=== PATIENT | female | born 2000 ===

== ENCOUNTER 2021-10-26 10:19 | Inpatient (IN) | payer MEDICAID ==
[~2021-10-26] VITALS: Ht 154.9 cm; Wt 68.0 kg
[2021-10-26 11:26] LABS: BASOPHILS % (AUTO) 0.3 % (0.0-2.0); EOSINOPHILS % (AUTO) 0 % (1.0-6.0); HEMATOCRIT 35.8 % (36-46); HEMOGLOBIN 12.1 g/dL (12.0-16.0); LYMPHOCYTES # (AUTO) 1.2 K/uL (1.0-4.8); LYMPHOCYTES % (AUTO) 6.2 % (22.0-44.0); MEAN CORPUSCULAR HEMOGLOBIN 30.2 pg (26.0-34.0); MEAN CORPUSCULAR HGB CONC 33.7 G/dL (31.0-37.0); MEAN CORPUSCULAR VOLUME 89 fL (80-100); MONOCYTES # (AUTO) 1.1 K/uL (0.1-1.0); MONOCYTES % (AUTO) 5.6 % (2.0-9.0); NEUTROPHILS # (AUTO) 16.6 K/uL (1.8-7.7); PLATELET COUNT (AUTO) 342 K/uL (150-450); RED BLOOD CELL COUNT(AUTO) 4.01 MIL/uL (4.00-5.20); RED CELL DISTRIBUTION WIDTH 13.1 % (11.5-14.5)
[2021-10-26 11:28] LABS: NEUTROPHILS % (AUTO) 87.9 % (40.0-70.0)
[2021-10-26 11:44] LABS: ANION GAP 20 mmol/L (8-16); CALCIUM, TOTAL 9.4 mg/dL (8.8-10.5); CARBON DIOXIDE 20 mmol/L (22-29); CHLORIDE 103 mmol/L (98-107); CREATININE 1.14 mg/dL (0.60-1.30); GLOMERULAR FILTR. RATE CALC 59 mL/min (>60); GLUCOSE,RANDOM 66 mg/dL (70-110); POTASSIUM 3.7 mmol/L (3.5-5.1); SODIUM SERUM 143 mmol/L (136-145); UREA NITROGEN, BLOOD 24 mg/dL (7-18)
[2021-10-26 11:45] LABS: PLATELET MORPHOLOGY COMMENT GIANT PLTS PRESENT
[2021-10-26 11:49] LABS: ALANINE AMINOTRANSFERASE 22 U/L (12-78); ALBUMIN 4.5 g/dL (3.4-5.0); ALKALINE PHOSPHATASE 78 U/L (46-116); ASPARTATE AMINOTRANSFERASE 56 U/L (15-37); BILIRUBIN,TOTAL 0.8 mg/dL (0.1-1.0); TOTAL PROTEIN, SERUM 8.6 g/dL (6.4-8.2)
[2021-10-26 11:52] LABS: ACETAMINOPHEN < 2 mcg/mL (10-30)
[2021-10-26 12:38] LABS: COVID AG,FIA SOURCE NASAL SWAB
[2021-10-26] MEDS ORDERED: ZOLPIDEM TARTRATE 10 MG TABLET PO PRN (13:30)
[2021-10-26] MEDS ORDERED: OLANZapine 5 MG RAPDIS TABLET PO PRN (13:30)
[2021-10-26 13:56] LABS: GLUCOMETER DEV NAME(LOC) ERT.5; GLUCOSE,POINT OF CARE 63 MG/DL (70-110)
[2021-10-26 14:16] LABS: GLUCOMETER DEV NAME(LOC) ERT.5; GLUCOSE,POINT OF CARE 132 MG/DL (70-110)
[2021-10-26 14:58] VITALS: BP 140/77
[2021-10-26 17:20] VITALS: BP 119/76
[2021-10-26] MEDS ORDERED: MAGNESIUM HYDROXIDE SUSPENSION 30 ML UDCUP PO PRN (21:30)
[2021-10-26] MEDS ORDERED: GuaiFENesin/D-METHORPHAN [SUGAR-FREE] 200-20MG/10 ML SYRUP UDCUP PO PRN (21:30)
[2021-10-26] MEDS ORDERED: PALIPERIDONE PALMITATE 234 MG/1.5 ML SYRINGE IM ONE (21:30)
[2021-10-26] MEDS ORDERED: TUBERCULIN, PURIFIED PROTEIN DERIVATIVE 5 TU/0.1 ML SYRINGE ID ONE (21:30)
[2021-10-26] MEDS ORDERED: PROMETHAZINE HCL 25 MG TABLET PO PRN (21:30)
[2021-10-26] MEDS ORDERED: MAG HYDROX/AL HYDROX/SIMETH ES 30 ML SUSPENSION UDCUP PO PRN (21:30)
[2021-10-26] MEDS ORDERED: LOPERAMIDE HCL 2 MG CAPSULE PO PRN (21:30)
[2021-10-27] MEDS: LORazepam 2 MG TABLET PO PRN ×4 (04:44→21:55)
[2021-10-27 07:04] LABS: HEMOGLOBIN A1C 5.6 % (3.8-5.6)
[2021-10-27 07:39] LABS: CHOL/HDL RATIO 2.6 (3.9-5.7); FREE T4 (FREE THYROXINE) 1.48 ng/dL (0.76-1.46); THYROID STIMULATING HORMONE 0.41 uIU/mL (0.36-3.74)
[2021-10-27] MEDS: OMEGA-3/DHA/EPA/FISH OIL 1,000 MG CAPSULE PO SCH (08:36)
[2021-10-27] MEDS: OLANZapine 5 MG RAPDIS TABLET PO SCH ×3 (08:36→16:57)
[2021-10-27] MEDS: NALTREXONE HCL 50 MG TABLET PO SCH (08:36)
[2021-10-27] MEDS: THIAMINE 100 MG TABLET PO SCH ×2 (08:36→16:57)
[2021-10-27] MEDS: MULTIVITAMINS WITH MINERALS, THERAPEUTIC TABLET PO SCH (08:36)
[2021-10-27] MEDS: FOLIC ACID 1 MG TABLET PO SCH (08:36)
[2021-10-27] MEDS: LamoTRIgine 100 MG TABLET PO SCH (15:00)
[2021-10-27] MEDS: ACETAMINOPHEN 325 MG TABLET PO PRN ×2 (15:09→21:55)
[2021-10-27 16:25] VITALS: BP 109/55
[2021-10-27] MEDS ORDERED: QUEtiapine FUMARATE 100 MG TABLET PO PRN (20:30)
[2021-10-27] MEDS: MELATONIN 5 MG TABLET PO SCH (21:00)
[2021-10-27] MEDS: QUEtiapine FUMARATE 100 MG TABLET PO SCH (21:01)
[2021-10-27] MEDS: HydrOXYzine PAMOATE 50 MG CAPSULE PO PRN (21:02)
[2021-10-28 07:18] LABS: BASOPHILS % (AUTO) 0.6 % (0.0-2.0); EOSINOPHILS % (AUTO) 0.5 % (1.0-6.0); HEMATOCRIT 37.9 % (36-46); HEMOGLOBIN 12.9 g/dL (12.0-16.0); LYMPHOCYTES # (AUTO) 1.8 K/uL (1.0-4.8); LYMPHOCYTES % (AUTO) 18.4 % (22.0-44.0); MEAN CORPUSCULAR HEMOGLOBIN 30.3 pg (26.0-34.0); MEAN CORPUSCULAR HGB CONC 33.9 G/dL (31.0-37.0); MEAN CORPUSCULAR VOLUME 89 fL (80-100); MONOCYTES # (AUTO) 0.6 K/uL (0.1-1.0); MONOCYTES % (AUTO) 6.2 % (2.0-9.0); NEUTROPHILS # (AUTO) 7.1 K/uL (1.8-7.7); NEUTROPHILS % (AUTO) 74.3 % (40.0-70.0); PLATELET COUNT (AUTO) 260 K/uL (150-450); RED BLOOD CELL COUNT(AUTO) 4.25 MIL/uL (4.00-5.20); RED CELL DISTRIBUTION WIDTH 13.9 % (11.5-14.5)
[2021-10-28 08:12] VITALS: BP 103/62
[2021-10-28] MEDS: NALTREXONE HCL 50 MG TABLET PO SCH (08:44)
[2021-10-28] MEDS: QUEtiapine FUMARATE 25 MG TABLET PO SCH ×3 (08:45→16:35)
[2021-10-28] MEDS: OMEGA-3/DHA/EPA/FISH OIL 1,000 MG CAPSULE PO SCH (08:45)
[2021-10-28] MEDS: FOLIC ACID 1 MG TABLET PO SCH (08:45)
[2021-10-28] MEDS: THIAMINE 100 MG TABLET PO SCH ×2 (08:45→16:35)
[2021-10-28] MEDS: MULTIVITAMINS WITH MINERALS, THERAPEUTIC TABLET PO SCH (08:46)
[2021-10-28] MEDS: LamoTRIgine 100 MG TABLET PO SCH (08:47)
[2021-10-28] MEDS: LORazepam 2 MG TABLET PO PRN ×2 (09:11→17:55)
[2021-10-28] MEDS: HydrOXYzine PAMOATE 50 MG CAPSULE PO PRN (09:11)
[2021-10-28] MEDS: ACETAMINOPHEN 325 MG TABLET PO PRN (14:03)
[2021-10-28 16:03] VITALS: BP 102/70
[2021-10-28] MEDS: NICOTINE 21 MG/24 HOUR PATCH TD SCH (17:39)
[2021-10-28] MEDS ORDERED: LAMO100 PO (19:07)
[2021-10-28] MEDS ORDERED: OMEG-108 PO (19:07)
[2021-10-28] MEDS ORDERED: QUET100T34 PO (19:07)
[2021-10-28] MEDS ORDERED: NALT50TA PO (19:07)
[2021-10-28] MEDS ORDERED: QUET25TA36 PO (19:07)
[2021-10-28] MEDS ORDERED: MELA5TAB40 PO (19:07)
[2021-10-28] MEDS ORDERED: PALI156D IM (19:07)
[2021-10-28] MEDS: MELATONIN 5 MG TABLET PO SCH (21:01)
[2021-10-28] MEDS: QUEtiapine FUMARATE 100 MG TABLET PO SCH (21:02)
[2021-10-29] MEDS: THIAMINE 100 MG TABLET PO SCH (08:14)
[2021-10-29] MEDS: LamoTRIgine 100 MG TABLET PO SCH (08:14)
[2021-10-29] MEDS: FOLIC ACID 1 MG TABLET PO SCH (08:15)
[2021-10-29] MEDS: OMEGA-3/DHA/EPA/FISH OIL 1,000 MG CAPSULE PO SCH (08:15)
[2021-10-29] MEDS: QUEtiapine FUMARATE 25 MG TABLET PO SCH (08:15)
[2021-10-29] MEDS: NALTREXONE HCL 50 MG TABLET PO SCH (08:15)
[2021-10-29] MEDS: MULTIVITAMINS WITH MINERALS, THERAPEUTIC TABLET PO SCH (08:22)
[2021-10-29] MEDS: NICOTINE 21 MG/24 HOUR PATCH TD SCH (08:24)
[2021-10-29 08:26] VITALS: BP 125/88
[2021-10-29] MEDS ORDERED: QUET100T34 PO (09:07)
[2021-10-29] MEDS ORDERED: LAMO100 PO (09:07)
[2021-10-29] MEDS ORDERED: MELA5TAB40 PO (09:07)
[2021-10-29] MEDS ORDERED: OMEG-108 PO (09:07)
[2021-10-29] MEDS ORDERED: QUET25TA36 PO (09:07)
[2021-10-29] MEDS ORDERED: NALT50TA PO (09:07)
[2021-10-30] MEDS ORDERED: PALIPERIDONE PALMITATE 156 MG/ML SYRINGE IM ONE (09:00)
== END 2021-10-29 11:00 | disposition home or self-care (01) | DRG 750 ==
LOC: EMS 10:29 → 3EC 12:40
PROVIDERS: ADMIT Psychiatry & Neurology Psychiatry; ATTEND Psychiatry & Neurology Psychiatry
DX: F25.9 Schizoaffective disorder, unspecified (principal); G40.409 Other generalized epilepsy and epileptic syndromes, not intractable, without status epilepticus; F15.90 Other stimulant use, unspecified, uncomplicated; F17.210 Nicotine dependence, cigarettes, uncomplicated; I48.91 Unspecified atrial fibrillation; Z20.822 Contact with and (suspected) exposure to COVID-19; F41.0 Panic disorder [episodic paroxysmal anxiety]; F60.3 Borderline personality disorder; Z55.9 Problems related to education and literacy, unspecified; Z88.8 Allergy status to other drugs, medicaments and biological substances; Z91.013 Allergy to seafood; Z59.9 Problem related to housing and economic circumstances, unspecified; Z63.9 Problem related to primary support group, unspecified; Z65.3 Problems related to other legal circumstances; Z91.14 Patient's other noncompliance with medication regimen
CPT/HCPCS: 80053; 80061; 82962; 83036; 84439; 84443; 85025; 86592; 99285; G0480; G0481; Q9967